=== PATIENT | female | born 1965 | race Hispanic/Latino ===

== ENCOUNTER 2016-10-18 13:11 | Emergency (ER) | payer OTHER ==
[~2016-10-18] VITALS: Ht 160 cm; Wt 66.2 kg
[~2016-10-18 13:11] MED LIST: ALPRAZOLAM0.5 M4 PO; DEPO-PROVE150 MG/1 M IM; DILTIAZEM 24HR360 MG PO; METOPROLOL SUC100 M2 PO; VICODIN 5-3001 EACH PO
[2016-10-18 13:19] VITALS: BP 152/91
[2016-10-18] MEDS ORDERED: DELTASONE20 MG PO (13:28)
[2016-10-18] MEDS ORDERED: HYDROXYZINE HCL50 M1 PO (13:28)
--- NOTE | 2016-10-18 13:29 | ED SKIN/ALLERGY COMPLAINT ---
History of Present Illness General Chief Complaint: Skin Rash/ Abcess Stated Complaint: HIVES [id number] Source: patient Exam Limitations: no limitations Vital Signs & Intake/Output Vital Signs & Intake/Output Vital Signs Date Time Temp Pulse Resp B/P B/P Pulse O2 O2 Flow FiO2 Mean Ox Delivery Rate 10/18 1327 Room Air 10/18 1319 99.0 95 15 152/91 94 Room Air Room Air Allergies Coded Allergies: poison randal extract (Intermediate, RASH 10/18/16) amoxicillin (RASH 10/18/16) latex (RASH 10/18/16) Reconcile Medications Alprazolam 0.5 MG TABLET 1 TAB PO DAILY ANXIETY (Reported) Diltiazem HCl (Diltiazem 24HR ER) 360 MG CAP.ER.24H 1 CAP PO DAILY HEART/BP ( Reported) Hydrocodone/Acetaminophen (Vicodin 5-300 MG Tablet) 5 MG-300 MG TABLET 1 TAB PO BID PRN PAIN Hydroxyzine HCl 50 MG TABLET 1 TAB PO TID ITCHING Medroxyprogesterone Acetate (Depo-Provera) 150 MG/ML VIAL 150 MG IM Q3M CONTROL (Reported) Metoprolol Succinate 100 MG TAB.ER.24H 0.5 TAB PO DAILY HEART/BP (Reported) Prednisone (Deltasone) 20 MG TABLET 1 TAB PO TID ALLERGIC REACTION Triage Note: PT TO ED FOR C/C OF ITCHING FOR THE LAST TWO DAYS, PT GOT L WRIST CAST OFF ON SATURDAY AND IT STARTED SINCE THEN. PT TOOK BENADRYL WITHOUT RELIEF FOR THE LAST TWO DAYS. LAST DOSE THIS MORNING. DENIES SOB, DENIES THROAT CLOSING, MAINTAINING SECRETIONS IN TRIAGE. Triage Nurses Notes Reviewed? yes Onset: Abrupt Duration: day(s): (few), constant, continues in ED Timing: recent history Severity: moderate, severe Location: generalized Possible Factors: no cause identified No Modifying Factors: none HPI: 50-year-old female comes into emergency room with generalized rash has been itching this been going on for the past few days. Patient reports that it pops up in different areas and then goes away. Denies any fever or chills. Denies any new skin care products. Denies new laundry detergent. Denies any new foods. No changes that the patient is aware of. No new medications. Past History Travel History Traveled to [place] past 21 day No Medical History Any Pertinent Medical History? see below for history Neurological: NONE EENT: NONE Cardiovascular: hypertension, PALPITATIONS Respiratory: asthma, TB Gastrointestinal: NONE Hepatic: NONE Renal: NONE Musculoskeletal: NONE Psychiatric: anxiety Endocrine: NONE Blood Disorders: NONE Cancer(s): NONE Surgical History Surgical History: non-contributory Psychosocial History What is your primary language Chinese Tobacco Use: Never used ETOH Use: denies use Illicit Drug Use: denies illicit drug use Family History Hx Contributory? No Review of Systems Review of Systems Constitutional: Reports: no symptoms. EENTM: Reports: no symptoms. Respiratory: Reports: no symptoms. Cardiovascular: Reports: no symptoms. GI: Reports: no symptoms. Genitourinary: Reports: no symptoms. Musculoskeletal: Reports: no symptoms. Skin: Reports: see HPI. Neurological/Psychological: Reports: no symptoms. Hematologic/Endocrine: Reports: no symptoms. Immunologic/Allergic: Reports: no symptoms. All Other Systems: Reviewed and Negative Physical Exam Physical Exam General Appearance: well developed/nourished, mild distress Head: atraumatic Eyes: Bilateral: normal appearance. Ears, Nose, Throat: normal ENT inspection, hearing grossly normal Neck: normal inspection Respiratory: no respiratory distress Cardiovascular: regular rate/rhythm Back: normal inspection Extremities: normal inspection, normal range of motion, no edema Neurologic/Psych: awake, alert, oriented x 3, normal mood/affect Skin: intact, rash Skin Problem Location: generalized Skin Problem Character: urticarial Lymphatic: no anterior cervical ward Progress Differential Diagnosis: abscess/cellulitis, allergic reaction, anaphylaxis, angioedema, contact dermatitis, lyme disease, shingles, syphilis/gonococcemia, toxic shock syndrome, urticaria Plan of Care: Laboratory Tests 10/18/16 1317: Sodium Cancelled, Potassium Cancelled, Chloride Cancelled, Carbon Dioxide Cancelled, Anion Gap Cancelled, BUN Cancelled, Creatinine Cancelled, BUN/ Creatinine Ratio Cancelled, Glucose Cancelled, Calcium Cancelled, Total Bilirubin Cancelled, AST Cancelled, ALT Cancelled, Alkaline Phosphatase Cancelled, Total Protein Cancelled, Albumin Cancelled, Globulin Cancelled, Albumin/Globulin Ratio Cancelled, CBC w Diff Cancelled, WBC Cancelled, RBC Cancelled, Hgb Cancelled, Hct Cancelled, MCV Cancelled, MCH Cancelled, RDW Cancelled, Plt Count Cancelled, MPV Cancelled, PUBS MCHC Cancelled Comments: 10/18/2016 3:29:36 PM Patient clinically looks well. Nontoxic-appearing. In no apparent distress. Most consistent with your to carry over from allergic reaction. Patient given steroids and hydroxyzine. Follow-up with technical maintenance specialist if symptoms don't resolve. Departure Departure Disposition: HOME OR SELF CARE Condition: Stable Clinical Impression Primary Impression: Urticarial rash Referrals: MEÑO LAMB,CARSON (PCP/Family) Additional Instructions: Take prednisone and hydroxyzine as prescribed. Follow-up with your primary care doctor. Return if any concerns worsening symptoms. Please go over all results of today's visit with your primary care doctor. Contact your primary care doctor to let them know you were here in the emergency room. There may be nonspecific findings which may not be related to your visit today here in the emergency room but may require further evaluation and chronic monitoring by your primary care doctor. If you had a laceration today the chance of foreign body always remains. You should follow-up with your primary care doctor for recheck in 3-5 days for a wound check. If you had an x-ray done there is a chance that a fracture could have been missed on initial read and you should follow-up with your primary care doctor for repeat x-rays if symptoms persist. If your blood pressure was elevated here in the emergency room please have rechecked by her primary care doctor within the next 48 hours by your primary care doctor. If you were prescribed a narcotic here in the emergency room or any type of controlled substances you're not allowed to drive while taking this medication or operate any type of heavy machinery. Narcotics can make you feel lightheaded dizziness nausea and can cause constipation. You may need to pick up man a stool softener. Thank you for choosing [facility] emergency room. Please return to the emergency room immediately if you have any other concerns worsening of symptoms. Departure Forms: Customer Survey General Discharge Information Prescriptions: Current Visit Scripts Prednisone (Deltasone) 1 TAB PO TID #15 MG Hydroxyzine HCl 1 TAB PO TID #30 TAB
== END 2016-10-18 13:39 ==
LOC: ERH 13:11
DX: L50.9 Urticaria, unspecified (principal)

== ENCOUNTER 2017-09-19 11:16 | Emergency (ER) | payer OTHER ==
[~2017-09-19] VITALS: Ht 160 cm; Wt 68.5 kg
[~2017-09-19 11:16] MED LIST changes: +DELTASONE20 MG PO; +HYDROXYZINE HCL50 M1 PO; +MECLIZINE HCL25 MG PO; +PERCOCET 5-3251 EACH PO; +TRANSDERM-SCOP1 EACH TOP; +ZOFRAN4 M2 PO
[2017-09-19 12:07] VITALS: BP 120/82
[2017-09-19] MEDS ORDERED: METOPROLOL SUCC25 M1 PO (13:00)
--- NOTE | 2017-09-19 13:19 | ED CARDIAC/CP/PALPITATIONS ---
History of Present Illness General Chief Complaint: Wheezing/Asthma Stated Complaint: ASTHMA Source: patient Exam Limitations: no limitations Vital Signs & Intake/Output Vital Signs & Intake/Output Vital Signs Date Time Temp Pulse Resp B/P B/P Pulse O2 O2 Flow FiO2 Mean Ox Delivery Rate 09/19 1352 97 Room Air Room Air 09/19 1207 98.1 83 15 120/82 96 Room Air Room Air Allergies Coded Allergies: poison randal extract (Intermediate, RASH 09/19/17) amoxicillin (RASH 09/19/17) latex (RASH 09/19/17) Reconcile Medications Cyclobenzaprine HCl 10 MG TABLET 1 TAB PO TID SPASMS Diltiazem HCl (Diltiazem 24HR ER) 360 MG CAP.ER.24H 1 CAP PO DAILY HEART/BP ( Reported) Ibuprofen 800 MG TABLET 1 TAB PO TID pain Metoprolol Succinate 25 MG TAB 1 TAB PO DAILY HEART (Reported) Triage Note: PT TO ED FOR C/C OF ASTHMA AND "LUNG PAIN" THAT STARTED A COUPLE OF DAYS AGO. PT STATES PAIN AND BREATHING ARE WORSE WHEN LAYING DOWN. DENIES FEVERS. +HEADACHES AND LIGHTHEADEDNESS. RECENT SURGERY ON LEFT HAND AUGUST 28, 2017 TO REMOVE HARDWARE. Triage Nurses Notes Reviewed? yes Onset: Abrupt Duration: day(s): Timing: recent history Quality/Severity: moderate Radiation: back Activities at Onset: none HPI: 51-year-old female comes into the emergency room with complaints of left-sided chest wall tenderness and pain in her left upper back. Symptoms were going on for the past 2 days. The pain is worse with any type of range of motion. She reports some associated shortness of breath. Denies any fever chills coughing. Comes in for further evaluation. Denies any other associated symptoms. She had surgery in her hand recently a few weeks ago. Past History Travel History Traveled to [place] past 21 day No Medical History Any Pertinent Medical History? 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 No Review of Systems Review of Systems Constitutional: Reports: no symptoms. EENTM: Reports: no symptoms. Respiratory: Reports: see HPI. Cardiovascular: Reports: see HPI. GI: Reports: no symptoms. Genitourinary: Reports: no symptoms. Musculoskeletal: Reports: no symptoms. Skin: Reports: no symptoms. Neurological/Psychological: Reports: no symptoms. Hematologic/Endocrine: Reports: no symptoms. Immunologic/Allergic: Reports: no symptoms. All Other Systems: Reviewed and Negative Physical Exam Physical Exam General Appearance: well developed/nourished, no apparent distress, alert, awake Head: atraumatic, normal appearance Eyes: Bilateral: normal appearance, EOMI. Ears, Nose, Throat: normal ENT inspection, hearing grossly normal Neck: normal inspection Respiratory: normal breath sounds, no respiratory distress Cardiovascular: regular rate/rhythm Gastrointestinal: soft Back: normal inspection Extremities: normal inspection, normal range of motion, no edema Neurologic/Psych: awake, alert, oriented x 3, normal gait Skin: intact, normal color Core Measures ACS in differential dx? No CVA/TIA Diagnosis No Sepsis Present: No Sepsis Focused Exam Completed? No Progress Differential Diagnosis: AMI, musculoskeletal pain, pericarditis, pneumonia, pneumothorax, pulmonary embolism Plan of Care: Orders Procedure Date/time Status TROPONIN LEVEL 09/19 1319 Complete D-DIMER 09/19 1319 Complete COMPREHENSIVE METABOLIC PANEL 09/19 1319 Complete CBC WITHOUT DIFFERENTIAL 09/19 1319 Complete EKG 09/19 1319 Active Laboratory Tests 09/19/17 1340: Anion Gap 13, Estimated GFR > 60, BUN/Creatinine Ratio 23.3, Glucose 102 H, Calcium 9.5, Total Bilirubin 0.4, AST 13 L, ALT 21, Alkaline Phosphatase 108, Troponin I < 0.01, Total Protein 7.8, Albumin 4.4, Globulin 3.4, Albumin/ Globulin Ratio 1.3, D-Dimer High Sensitivty < 200, CBC w Diff NO MAN DIFF REQ, RBC 4.26, MCV 88.1, MCH 30.4, MCHC 34.5, RDW 13.2, MPV 7.1 L, Gran % 61.1, Lymphocytes % 25.9, Monocytes % 7.1, Eosinophils % 5.4 H, Basophils % 0.5, Absolute Granulocytes 4.8, Absolute Lymphocytes 2.0, Absolute Monocytes 0.6, Absolute Eosinophils 0.4, Absolute Basophils 0 Diagnostic Imaging: Viewed by Me: Radiology Read. Discussed w/RAD: Radiology Read. Radiology Impression: PATIENT: ZEE AMADOR PRESENT AGE: 51 PATIENT ACCOUNT NO: [id number] : 66 LOCATION: [facility] ORDERING PHYSICIAN: Bridger LAINEZ SERVICE DATE: 09/19/17 EXAM TYPE : RAD - XRY-CHEST XRAY, TWO VIEWS EXAMINATION: XR CHEST CLINICAL INFORMATION: Chest pain COMPARISON: 08/20/2017 TECHNIQUE: 2 views of the chest were obtained. FINDINGS: Cardiac and mediastinal silhouette is within normal limits. Lungs are symmetric expanded. There are no pleural effusions or pneumothorax. Minimal bibasilar atelectasis. No focal consolidation. No acute osseous abnormality. Degenerative changes in the spine. IMPRESSION: Mild bibasilar atelectasis. No acute findings otherwise. DICTATED BY: Obed Dailey MD DATE/TIME DICTATED:1409 PRODUCT EVANGELIST:SCAR DATE/TIME TRANSCRIBED:09/19/171409 CONFIDENTIAL, DO NOT COPY WITHOUT APPROPRIATE AUTHORIZATION. <Electronically signed in Other Vendor System> SIGNED BY: Obed Dailey MD 09/19/17 1422 Initial ED EKG: normal sinus rhythm, rate (60), borderline twave abnormalities Prior EKG: unchanged Departure Departure Disposition: HOME OR SELF CARE Condition: Stable Clinical Impression Primary Impression: Chest wall pain Referrals: Caio Fernandes MD (PCP/Family) Additional Instructions: Take ibuprofen and Flexeril as prescribed. Follow-up with your primary care doctor. Return if any concerns worsening symptoms. Please go over all results of today's visit with your primary care doctor. Contact your primary care doctor to let them know you were here in the emergency room. There may be nonspecific findings which may not be related to your visit today here in the emergency room but may require further evaluation and chronic monitoring by your primary care doctor. If you had a laceration today the chance of foreign body always remains. You should follow-up with your primary care doctor for recheck in 3-5 days for a wound check. If you had an x-ray done there is a chance that a fracture could have been missed on initial read and you should follow-up with your primary care doctor for repeat x-rays if symptoms persist. If your blood pressure was elevated here in the emergency room please have rechecked by donte primary care doctor within the next 48. If you were prescribed a narcotic here in the emergency room or any type of controlled substances you're not allowed to drive while taking this medication or operate any type of heavy machinery. Narcotics can make you feel lightheaded dizziness nausea and can cause constipation. You may need to olive picker a stool softener. Thank you for choosing [facility] emergency room. Please return to the emergency room immediately if you have any other concerns worsening of symptoms. Departure Forms: Customer Survey General Discharge Information Prescriptions: Current Visit Scripts Ibuprofen 1 TAB PO TID #30 TAB Cyclobenzaprine HCl 1 TAB PO TID #20 TAB Comments 09/19/2017 4:29:18 PM Patient clinically looks well. Pain improved after Toradol. Pain is reproducible and worse with range of motion. Pain is more consistent with musculoskeletal pain. Return if any other concerns. Patient understands and agrees with plan of care. Due to the fact the pain has been going on for 2 days a do not feel 2nd troponin is necessary especially in light of the fact that she has an unchanged EKG and the pain is more consistent with muscular pain than cardiac pain. Critical Care Note Critical Care Note Critical Care Time: non-applicable
[2017-09-19 14:00] LABS: ABSOLUTE BASOPHIL COUNT 0 /CUMM (0.0-0.2); ABSOLUTE EOSINOPHIL COUNT 0.4 /CUMM (0.0-0.7); ABSOLUTE GRANULOCYTE CT 4.8 /CUMM (1.4-6.5); ABSOLUTE MONOCYTE COUNT 0.6 /CUMM (0.10-0.60); BASOPHIL % 0.5 % (0.0-2.0); EOSINOPHIL % 5.4 % (0-5); GRANULOCYTE % 61.1 % (42.2-75.2); HEMATOCRIT 37.5 % (37-47); MEAN CORPUSCULAR HGB 30.4 PG (27.0-31.0); MEAN CORPUSCULAR HGB CONC 34.5 G/DL (33.0-37.0); MEAN CORPUSCULAR VOLUME 88.1 FL (81.0-99.0); MEAN PLATELET VOLUME 7.1 FL (7.4-10.4); PLATELET COUNT 472 /CUMM (130-400); RBC DISTRIBUTION WIDTH 13.2 % (11.5-14.5); RED BLOOD CELL CT 4.26 /CUMM (4.20-5.40); WHITE BLOOD CELL COUNT 7.9 /CUMM (4.8-10.8)
--- NOTE | 2017-09-19 14:22 | RADIOLOGY REPORT ---
EXAMINATION: XR CHEST CLINICAL INFORMATION: Chest pain COMPARISON: 08/20/2017 TECHNIQUE: 2 views of the chest were obtained. FINDINGS: Cardiac and mediastinal silhouette is within normal limits. Lungs are symmetric expanded. There are no pleural effusions or pneumothorax. Minimal bibasilar atelectasis. No focal consolidation. No acute osseous abnormality. Degenerative changes in the spine. IMPRESSION: Mild bibasilar atelectasis. No acute findings otherwise.
[2017-09-19] MEDS ORDERED: CYCLOBENZAPRINE10 M1 PO (15:30)
[2017-09-19] MEDS ORDERED: IBUPROFEN800 M1 PO (15:30)
== END 2017-09-19 18:34 ==
LOC: ERH 11:16
PROVIDERS: Physician Assistant Medical
DX: R07.89 Other chest pain (principal); I10 Essential (primary) hypertension; Z87.891 Personal history of nicotine dependence
CPT/HCPCS: 71046; 93005; 93010; 96372; J1885